=== PATIENT | female | born 1935 | race Caucasian/White ===

== ENCOUNTER → 2020-09-28 18:10 | Outpatient (CLI) | payer MEDICARE ==
[2012-01-19 09:30] VITALS: BMI 31.4
[2020-09-28 18:22] LABS: BASOPHILS 1.2 % (0-2); EOSINOPHILS 1.3 % (0-7); HEMATOCRIT 40.9 % (36.0-48.0); HEMOGLOBIN 13.1 g/dL (12-16); MCH 28.3 pg (26.0-34.0); MCV 88.6 fL (80.0-100.0); MEAN PLATELET VOLUME 7.9 fL (7.4-10.4); MONOCYTES 9.5 % (2-11); PLATELET COUNT 414 10x3/uL (130-400); RBC 4.62 10x6/uL (4.00-5.40); WBC 11.4 10x3/uL (4.8-10.8)
[2020-09-28 18:26] LABS: ANION GAP 17.1 mmol/L (8-16); CALCIUM 10.1 mg/dL (8.5-10.1); CARBON DIOXIDE 26.5 mmol/L (21.0-32.0); CREATININE - SERUM 0.9 mg/dL (0.6-1.3); POTASSIUM - SERUM 4.6 mmol/L (3.5-5.1)
== END | disposition home or self-care (01) ==
LOC: D.LABREF 18:10
PROVIDERS: ATTEND Family Medicine
DX: R06.02 Shortness of breath (principal); R05 Cough